=== PATIENT | female | born 1985 | race Caucasian/White ===

== ENCOUNTER 2021-08-07 16:50 | Emergency (ER) | payer MEDICAID, SELFPAY ==
[2021-08-07 18:11] VITALS: BP 112/75; PULSE 51; TEMP 37.1; O2SAT 97
--- NOTE | 2021-08-07 18:27 | ED.GENADUL_ITS ---
Discharge Plan Disposition Patient Disposition: HOME Condition: Improving Discharge Details Clinical Impression: Back pain Primary Care Provider: Unknown,Unknown ED Provider: Hugo Peacock Home Meds and New Rx's Prescriptions: New oxycodone-acetaminophen [Percocet] 5-325 mg tablet 1 tab PO Q8H PRNQty: 8 0RF cyclobenzaprine 7.5 mg tablet 7.5 mg PO TID PRNQty: 10 0RF ibuprofen 800 mg tablet 800 mg PO TID PRNQty: 20 0RF Continued Mirena 1 EACH intrauterine device 1 diaph IU DIRECTED 0RF multivitamin Tablet 1 tab PO DAILY 0RF Discharge Instructions Instructions: Back Pain (ED) Additional Instructions: Percocet, Flexeril, ibuprofen as directed. Both Flexeril and Percocet may cause drowsiness. Percocet may also cause constipation, you may want to take [id number] stool softener while taking this medication. Cool and/or warm compresses every 2 hours for 20 minutes. Gentle stretching as tolerated. Please watch for new or worsening symptoms and return to the ER for any con cerns. Lastly, I have placed you on the care management list to help expedite outpatient primary care follow-up. As we discussed, outpatient physical therapy may be beneficial if symptoms are to persist Medical Decision Making This is a 36-year-old female, denies significant past medical history, denies IV drug use, presenting to the ER for diffuse lower back discomfort worse on the right side that happened suddenly after turning and lifting some bicycles. She denies any numbness, tingling, weakness, radicular pain. Denies fever, bowel or bladder incontinence and/or retention. Took 2 Motrin with little relief of her symptoms. Reports that pain is manageable at rest but with certain types of movements the pain really intensifies. Clinically she appears uncomfortable, positive straight leg raise, and mild right-sided paravertebral spasm. Neurologically intact. Given she has no midline point tenderness, this injury occurred with more of a twisting and lifting mechanism, I do not believe that emergent advanced imaging is required. Patient reports Mirena, no chance of . Will provide IV morphine, Toradol, Norflex and reassess. Upon reevaluation patient reports moderate improvement of her symptoms but with certain movement her pain does intensify. Her straight leg raise in the right side now is approximately 25-30 degrees. She certainly has better range of motion and appears more comfortable. She remains neurologically intact. 5 out of 5 strength bilateral lower extremities. We discussed options. She is comfortable discharge at this time, I will provide a take-home pack of Flexeril, Percocet, and provide her a prescription to fill tomorrow Flexeril, Percocet and Motrin. We discussed conservative measures, gentle stretching, cool and/or warm compresses, and the importance of outpatient follow-up. I will place her on the care management list to help expedite outpatient primary care follow-up. Otherwise strict discharge and return precautions were provided. This documentation was generated using [facility] [employer] [facility] system, please disregard any oddities of phrase or misspellings. Medical Records Medical records reviewed: Yes I reviewed the patient's medical records. HPI General Mode of arrival: ambulatory . Date/Time Provider Initiated Documentation: 08/07/21 17:34 . Limitations to Documentation: no limitations . Information obtained by: patient . History of Present Illness 36 year old F presents to the emergency department with the chief complaint of back pain, described as severe, with intensity rated at 9. Quality is described as aching, and is localized to the back. Patient reports no radiation. Patient started experiencing this hour(s) (2.5) and it has been constant. improves with Immobilization improves symptom(s), Movement worsens symptoms . Patient notes no other symptoms.. Patient did receive the following treatments prior to arrival, NSAID Related Data Home Medications Medication Instructions Recorded Confirmed levonorgestrel 20 mcg/24 hours (7 1 diaph IU DIRECTED 11/03/13 08/07/21 yrs) 52 mg intrauterine device (Mirena) cyclobenzaprine 7.5 mg tablet 7.5 mg PO TID PRN #10 tab 08/07/21 ibuprofen 800 mg tablet 800 mg PO TID PRN #20 tab 08/07/21 multivitamin 1 tab PO DAILY 08/07/21 08/07/21 oxycodone-acetaminophen 5 mg-325 1 tab PO Q8H PRN #8 tab 08/07/21 mg tablet (Percocet) Previous Rx's Medication Instructions Recorded cyclobenzaprine 7.5 mg tablet 7.5 mg PO TID PRN #10 tab 08/07/21 ibuprofen 800 mg tablet 800 mg PO TID PRN #20 tab 08/07/21 oxycodone-acetaminophen 5 mg-325 1 tab PO Q8H PRN #8 tab 08/07/21 mg tablet (Percocet) Allergies Allergy/AdvReac Type Severity Reaction Status Date / Time erythromycin base AdvReac Vomit Unverified 08/07/21 17:06 [Erythromycin Base] penicillin V AdvReac Vomit Unverified 08/07/21 17:06 tape Allergy Intermediate Uncoded 08/07/21 17:06 General Stated Complaint: Nk/Back Pain LUIS ENRIQUE: 4 Review of Systems Constitutional Constitutional: Denies fever(s) and Denies weakness Cardiovascular Cardiovascular: Denies chest pain Respiratory Respiratory: Denies cough Gastrointestinal Gastrointestinal: Denies abdominal pain, Denies nausea and Denies vomiting Genitourinary Genitourinary: Denies abnormal vaginal bleeding, Denies dysuria, Denies urinary incontinence and Denies vaginal discharge Musculoskeletal Musculoskeletal: Reports back pain, Denies numbness and Denies tingling Integumentary/Breasts Skin/Breast: Denies rash Neurologic Neurologic: Denies numbness, Denies tingling and Denies weakness PFSH All Active Problems Back pain (Acute) Medical History Skin tag removed from right chest 04/23/15 Family History Mother Depression Mental disorder Depression Neoplasm VAGINAL Father Substance abuse HISTORY OF SUBSTANCE ABUSE Essential hypertension Hyperlipidemia COPD (chronic obstructive pulmonary disease) Asthma Brother No problems noted. Grandfather Diabetes Grandfather Hyperlipidemia Cirrhosis of liver Grandmother No problems noted. Grandmother No problems noted. Maternal family history Diabetes Paternal family history Essential hypertension Hyperlipidemia Son No problems noted. Son No problems noted. Daughter No problems noted. Social History Smoking/Tobacco Use Status: Current every day Tobacco Type: cigarettes Smoking risk assessment performed?: Yes Alcohol Intake: current Alcohol Intake frequency: a few times a month Drug use: Never Do you feel safe at home: Yes Do you feel safe in your relationship?: Yes Exam Const General: cooperative, healthy appearing and other (Appears uncomfortable) Orientation: alert and awake HENPA Head: normal to inspection, normocephalic and atraumatic Eyes General: appearance normal, both eyes and all related structures Conjunctivae: conjunctivae normal Neck Neck: normal visual inspection, full ROM, no meningeal signs, trachea midline and supple Resp Effort & Inspection: normal respiratory effort and able to speak in complete sentences Auscultation: clear to auscultation bilaterally Cardio Rate: regular rate Rhythm: regular rhythm GI Inspection: normal to inspection Palpation: soft and nontender Back/Spine/Pelvis Back: no CVA tenderness and back tenderness Thoracic/Lumbar Spine: thoracic and lumbar spine normal to inspection, thoraco- lumbar ROM normal (Limited secondary to discomfort), paraspinal tenderness (Lumbar, right-sided) and straight leg raise positive (Right sided, 10 degrees) Pelvis: no pain with anterior-posterior compression and no pain with lateral compression Sacroiliac joints: on the right tender to palpation Skin General skin exam: no rashes or lesions noted Neuro General: patient alert, patient awake, patient oriented x3, moves all extremities and no focal motor deficits Cognition: normal cognition Speech: speech normal Gait: antalgic Motor: muscle tone normal throughout and strength 5/5 throughout Sensory Exam: no sensory deficits noted Extrem General: normal to inspection, full ROM, capillary refill normal, no pedal edema and no calf tenderness Psych Appearance: grossly normal Mental Status: mental status grossly normal Course Vital Signs Vital signs: Vital Signs Temperature 37.1 C 08/07/21 18:11 Pulse 51 L 08/07/21 18:11 Blood Pressure 112/75 08/07/21 18:11 Pulse Oximetry 97 08/07/21 18:11 Temperature 37.1 C 08/07/21 18:11 Temperature Source Oral 08/07/21 18:11 Pulse 51 L 08/07/21 18:11 Respiratory Effort 08/07/21 17:07 Blood Pressure 112/75 08/07/21 18:11 Pulse Oximetry 97 08/07/21 18:11 Oxygen Delivery Method Room Air 08/07/21 18:11 Oxygen Flow Rate 0 08/07/21 18:11 Pain Level 8 08/07/21 18:11 Comment 08/07/21 17:01 PAWSS Have you Been Recently Intoxicated or Drunk Within the Last 30 days?: No Have you Ever Experienced Previous Episodes of Alcohol Withdrawal?: No Have you ever Experienced Withdrawal Seizures?: No Have you ever Experienced Delirium Tremens(DT)s?: No Have you ever undergone Alcohol Rehabilitation Treatment (i.e, inpt ot outpatient treatment programs)?: No Have you ever Experienced Blackouts?: No Have you ever Combined Alcohol with other Downers within the last 90 days?: No Have you ever Combined Alcohol with any other Substance of Abuse during the last 90 days?: No Positive Blood Alcohol level on Presentation? [PCS.BAL]: No Evidence of Increased Autonomic Activity (i.e. HR>120, tremor, sweating, agitation, nausea)?: No Result: 0
[2021-08-07] MEDS: Orphenadrine 60 MG/2 ML VIAL IVP (18:44)
[2021-08-07] MEDS: MORPHine 4 MG/ML SYR IVP (18:44)
[2021-08-07] MEDS: Ketorolac 30 MG/ML VIAL IVP (18:44)
--- NOTE | 2021-08-07 19:46 | NUR.NOTE ---
Referral to Care Management to establish pcp to f/u 5-10 days for back pain.Nursing Note:
[2021-08-07 19:51] VITALS: BP 113/73; PULSE 43; RESP 16; O2SAT 98
[2021-08-07] MEDS: Cyclobenzaprine 10 MG TAB, 3 TABS/BTL PO (19:53)
== END 2021-08-07 20:04 | disposition home or self-care (01) ==
PROVIDERS: Emergency Provider Physician Assistant
DX: M54.50 Low back pain, unspecified (principal); X50.0XXA Overexertion from strenuous movement or load, initial encounter
CPT/HCPCS: 96374; 96375; 99284; J2360; J1885; J2270

== ENCOUNTER 2022-08-16 02:47 | Emergency (ER) | payer MEDICAID, SELFPAY ==
[2022-08-16 02:51] VITALS: BP 133/78; PULSE 53; RESP 17; TEMP 36.8; O2SAT 98
--- NOTE | 2022-08-16 03:11 | ED.GENADUL_ITS ---
Discharge Plan Disposition Patient Disposition: Home Condition: Stable Discharge Details Clinical Impression: Pain, dental ED Provider: Rivera Burciaga Home Meds and New Rx's Prescriptions: New clindamycin HCl 150 mg capsule 450 mg PO TID 7 Days Qty: 63 0RF Continued Mirena 1 EACH intrauterine device 1 diaph IU DIRECTED multivitamin Tablet 1 tab PO DAILY ibuprofen 800 mg tablet 800 mg PO TID PRNQty: 20 0RF No Action oxycodone-acetaminophen [Percocet] 5-325 mg tablet 1 tab PO Q8H PRNQty: 8 0RF cyclobenzaprine 7.5 mg tablet 7.5 mg PO TID PRNQty: 10 0RF Discharge Instructions Instructions: Toothache (ED) Additional Instructions: follow up as scheduled with your dentist if you develop fevers, inability to swallow liquids or feel more ill, return to the emergency department Medical Decision Making 37 yo female who denies chronic medical problems comes in with worsening left molar pain and swelling over the last 2 days. Denies fevers or difficulty swallowing liquids. She states she has a dentist appt 08/25. She arrives stable, has mild swelling of the left mid jaw line along the mandible, no submandibular swelling, no drooling or dyspnea. She has pain with percussion to the left lower posterior molar. She has no visible drainable abscess on exam. No pain over the hyoid, no restricted neck movements, midline uvula and normal posterior pharynx. Symptoms and exam consistent with dental infection, no findings to suggest demetrice's. Will start on clindamycin, advised to keep dentist appt and return precautions given Differential Diagnosis Differential Diagnosis: pulpitis, abscess HPI General Mode of arrival: ambulatory . Date/Time Provider Initiated Documentation: 08/16/22 02:53 . Limitations to Documentation: no limitations . Information obtained by: patient . History of Present Illness 37 year old F p resents to the emergency department with the chief complaint of left lower molar pain, described as moderate, Patient started experiencing this day(s) (2) and it has been constant. No relieving factors improve symptom(s), No exacerbating factors reported . Patient notes no other symptoms.. Related Data Home Medications Medication Instructions Recorded Confirmed levonorgestrel 21 mcg/24 hours (8 1 diaph IU DIRECTED 11/03/13 08/07/21 yrs) 52 mg intrauterine device (Mirena) cyclobenzaprine 7.5 mg tablet 7.5 mg PO TID PRN #10 tabs 08/07/21 ibuprofen 800 mg tablet 800 mg PO TID PRN #20 tabs 08/07/21 multivitamin 1 tab PO DAILY 08/07/21 08/07/21 oxycodone-acetaminophen 5 mg-325 1 tab PO Q8H PRN #8 tabs 08/07/21 mg tablet (Percocet) clindamycin HCl 150 mg capsule 450 mg PO TID 7 days #63 caps 08/16/22 Previous Rx's Medication Instructions Recorded cyclobenzaprine 7.5 mg tablet 7.5 mg PO TID PRN #10 tabs 08/07/21 ibuprofen 800 mg tablet 800 mg PO TID PRN #20 tabs 08/07/21 oxycodone-acetaminophen 5 mg-325 1 tab PO Q8H PRN #8 tabs 08/07/21 mg tablet (Percocet) clindamycin HCl 150 mg capsule 450 mg PO TID 7 days #63 caps 08/16/22 Allergies Allergy/AdvReac Type Severity Reaction Status Date / Time erythromycin base AdvReac Vomit Unverified 08/07/21 17:06 [Erythromycin Base] penicillin V AdvReac Vomit Unverified 08/07/21 17:06 tape Allergy Intermediate Uncoded 08/07/21 17:06 General Stated Complaint: DentalOral LUIS ENRIQUE: 4 Review of Systems All systems reviewed & are unremarkable except as noted in HPI and below Constitutional Constitutional: Denies chills, Denies fever(s) and Denies weakness Cardiovascular Cardiovascular: Denies chest pain and Denies dyspnea Respiratory Respiratory: Denies cough and Denies dyspnea Gastrointestinal Gastrointestinal: Denies abdominal pain, Denies nausea and Denies vomiting Integumentary/Breasts Skin/Breast: Denies rash Neurologic Neurologic: Denies weakness PFSH All Active Problems (Updated 08/16/22 @ 03:12 by Rivera Burciaga MD) Pain, dental (Acute) Medical History Skin tag removed from right chest 04/23/15 Family History Mother Depression Mental disorder Depression Neoplasm VAGINAL Father Substance abuse HISTORY OF SUBSTANCE ABUSE Essential hypertension Hyperlipidemia COPD (chronic obstructive pulmonary disease) Asthma Brother No problems noted. Grandfather Diabetes Grandfather Hyperlipidemia Cirrhosis of liver Grandmother No problems noted. Grandmother No problems noted. Maternal family history Diabetes Paternal family history Essential hypertension Hyperlipidemia Son No problems noted. Son No problems noted. Daughter No problems noted. Social History Smoking/Tobacco Use Status: Current every day Tobacco Type: cigarettes Smoking risk assessment performed?: Yes Alcohol Intake: current Alcohol Intake frequency: a few times a month Drug use: Rarely Substance use type: marijuana Do you feel safe at home: Yes Do you feel safe in your relationship?: Yes Exam Const General: no acute distress Orientation: alert HENMT Head: normal to inspection Ears: external ears normal General nose exam: external nose normal Mouth: moist mucous membranes Eyes General: appearance normal, both eyes and all related structures Neck Neck: normal visual inspection Resp Effort & Inspection: normal respiratory effort and able to speak in complete sentences Cardio Rate: regular rate Skin General skin exam: no rashes or lesions noted Neuro General: patient alert and patient oriented x3 Extrem General: normal to inspection Psych Mental Status: mental status grossly normal Course Vital Signs Vital signs: Vital Signs Temperature 36.8 C 08/16/22 02:51 Pulse 53 L 08/16/22 02:51 Respiratory Rate 17 08/16/22 02:51 Blood Pressure 133/78 08/16/22 02:51 Pulse Oximetry 98 08/16/22 02:51 Temperature 36.8 C 08/16/22 02:51 Temperature Source Temporal Artery Scan 08/16/22 02:51 Pulse 53 L 08/16/22 02:51 Respiratory Rate 17 08/16/22 02:51 Respiratory Effort Normal 08/16/22 02:53 Blood Pressure 133/78 08/16/22 02:51 Blood Pressure Position Sitting 08/16/22 02:51 Pulse Oximetry 98 08/16/22 02:51 Oxygen Delivery Method Room Air 08/16/22 02:51 Oxygen Flow Rate 0 08/16/22 02:51 Pain Level 7 08/16/22 02:51
[2022-08-16] MEDS: Clindamycin 150 MG CAP 450 MG PO (03:34)
== END 2022-08-16 03:19 | disposition home or self-care (01) ==
PROVIDERS: Emergency Provider Emergency Medicine
DX: K08.89 Other specified disorders of teeth and supporting structures (principal)
CPT/HCPCS: 99283

== ENCOUNTER 2023-03-14 03:12 | Outpatient (CLI) | payer MEDICAID, SELFPAY ==
[2023-03-14 11:22] LABS: HCT 32.8 % (36.0-46.0); HGB 10.7 g/dL (11.2-15.7); MCH 31.3 pg (27.0-33.0); MCHC 32.6 % (32.0-36.0); MCV 96 fL (80-95); MPV 10.6 fL (8.0-11.0); Platelet Count 267 10^3/uL (130-400); RBC 3.42 10^6/uL (3.93-5.22); RDW 12.8 % (11.7-14.6); RDW-SD 44.6 fL; WBC 11.06 10^3/uL (4.4-10.8)
[2023-03-14 11:29] LABS: Glucose,1 Hr (Glucola) 106 mg/dL (80-140)
[2023-03-15 10:42] LABS: Varicella IgG Antibody Positive (See Note)
[2023-03-15 11:57] LABS: Hep B Core Antibody Negative (Negative)
== END 2023-03-14 03:13 | disposition home or self-care (01) ==
LOC: LBO 03:12
PROVIDERS: Visit Provider Advanced Practice Midwife
DX: Z34.93 Encounter for supervision of normal pregnancy, unspecified, third trimester (principal)
CPT/HCPCS: 36415; 82950; 85027; 86704; 86787; 86850; 86900; 86901

== ENCOUNTER 2023-03-14 11:00 | Outpatient (REF) | payer MEDICAID, SELFPAY ==
[2023-03-14 12:23] LABS: *AMPHETAMINES SCREEN URINE Negative (Negative); *BARBITURATES SCREEN URINE Negative (Negative); *BENZODIAZEPINES SCREEN URINE Negative (Negative); Cannabinoids THC Positive (Negative); Cocaine Screen,Urine Negative (Negative); METHADONE URINE SCREEN Negative (Negative); OPIATES URINE SCREEN Negative (Negative)
[2023-03-14 12:26] LABS: Tricyclic Antidepressants Negative (Negative)
[2023-03-19 03:12] LABS: Buprenorphine Negative ng/mL (Cutoff: 5.0); Norbuprenorphine Negative ng/mL (Cutoff: 2.5)
== END 2023-03-14 11:01 | disposition home or self-care (01) ==
LOC: LBN 11:00
PROVIDERS: Visit Provider Advanced Practice Midwife
DX: Z34.93 Encounter for supervision of normal pregnancy, unspecified, third trimester (principal)
CPT/HCPCS: 80307; 80348

== ENCOUNTER → 2023-03-16 00:55 | Outpatient (CLI) | payer MEDICAID, SELFPAY ==
--- NOTE | 2023-03-16 06:45 | DI.US_ITS ---
Exam(s) US OB DAVONTE WEIGHT EXAM: US OB DAVONTE WEIGHT CLINICAL HISTORY: ,ELDERLY MULTIGRAVIDA,[id number]. TECHNIQUE: Transabdominal obstetrical ultrasound was performed. COMPARISON: None this just station FINDINGS: There is a single viable intrauterine gestation with cardiac activity identified-137 bpm The fetus is presently in cephalic position . Amniotic fluid: There is a normal amount of amniotic fluid with an DAVONTE of 12.1cm. Placental location: The placenta is fundal grade 1,with no evidence of placenta previa. Dating parameters place this at approximately 32 weeks and 1 day gestational age, implying BRIAN of 05/14/2023. BPD measures 32 weeks and 1 day HC measures 32 weeks and 1 day AC measures 31 weeks and 5 days FL measures 30 weeks and 2 days Estimated weight is 1750 gm-3 pounds 14 ounces Fetus is at the 18th percentile on the Hadlock scale. IMPRESSION:: Viable 3rd trimester gestation, as described above. DATA REPOSITORY:
== END ==
PROVIDERS: Visit Provider Advanced Practice Midwife
DX: O09.523 Supervision of elderly multigravida, third trimester (principal); Z34.93 Encounter for supervision of normal pregnancy, unspecified, third trimester; Z36.2 Encounter for other antenatal screening follow-up
CPT/HCPCS: 76816

== ENCOUNTER 2023-04-13 12:12 | Outpatient (REF) | payer MEDICAID, SELFPAY | END 2023-04-13 12:13 | disposition home or self-care (01) | LOC: LBN 12:12 | PROVIDERS: PCP Advanced Practice Midwife; Visit Provider Advanced Practice Midwife | DX: Z34.93 Encounter for supervision of normal pregnancy, unspecified, third trimester (principal); Z36.85 Encounter for antenatal screening for Streptococcus B; Z3A.36 36 weeks gestation of pregnancy | CPT/HCPCS: 87081 ==

== ENCOUNTER 2023-04-13 13:24 | Outpatient (REF) | payer MEDICAID, SELFPAY ==
[2023-04-13 14:53] LABS: *AMPHETAMINES SCREEN URINE Negative (Negative); *BARBITURATES SCREEN URINE Negative (Negative); *BENZODIAZEPINES SCREEN URINE Negative (Negative); Cannabinoids THC Positive (Negative); Cocaine Screen,Urine Negative (Negative); METHADONE URINE SCREEN Negative (Negative); OPIATES URINE SCREEN Negative (Negative)
[2023-04-13 14:55] LABS: Tricyclic Antidepressants Negative (Negative)
== END 2023-04-13 13:25 | disposition home or self-care (01) ==
LOC: LBN 13:24
PROVIDERS: Advanced Practice Midwife; PCP Advanced Practice Midwife; Visit Provider Advanced Practice Midwife
DX: Z34.93 Encounter for supervision of normal pregnancy, unspecified, third trimester (principal); Z3A.36 36 weeks gestation of pregnancy
CPT/HCPCS: 80307

== ENCOUNTER 2023-05-17 08:38 | Outpatient (CLI) | payer MEDICAID, SELFPAY ==
[2023-05-17 10:08] VITALS: BP 117/57; PULSE 50; TEMP 36.9
[2023-05-17 10:09] VITALS: BP 117/57; PULSE 50; RESP 16; TEMP 36.9
[2023-05-17 10:28] VITALS: BP 117/57; PULSE 50; TEMP 36.9
--- NOTE | 2023-05-17 10:36 | W.OBNST ---
Date of service: 05/17/23 Time of Service: 10:36 NST Evaluation Reason for NST Reasons for Nonstress Test: POSTDATES Gestational Age Gestational Age in Weeks and Days: 40 Weeks and 6Days Test and Monitor Explained Test/Monitor Explained: Test Explained, Monitor Explained and Patient Verbalized Understanding Vital Signs Blood Pressure: 117/57 Pulse: 50 Temperature: 98.5 F NST Information Date on Monitor: 05/17/23 Time on Monitor: 10:04 Date off Monitor: 05/17/23 Time off Monitor: 10:28 Total Time on Monitor: 24 NST Interventions: None Contraction Frequency: irritability NST Evaluation Patient States Movement: Present FHR Baseline: 130 Variability: Moderate 6-25 bpm Accelerations: 15x15 Decelerations: None NST Results: Reactive Note Ultrasound Done: N/A. NST Note Note: NST is reactive and ressuring, however, growth is 6% for growth and plan is for her to go home to gather her things and return this afternoon for IOL. BERTO NST Reviewed and Verified by: Andra Skinner
[2023-05-17 10:37] VITALS: BP 117/57; PULSE 50; TEMP 36.9
== END 2023-05-17 10:36 | disposition home or self-care (01) ==
LOC: BCD 08:45 → OBS 09:16
PROVIDERS: PCP Advanced Practice Midwife; Visit Provider Advanced Practice Midwife
DX: O48.0 Post-term pregnancy (principal); Z3A.40 40 weeks gestation of pregnancy
CPT/HCPCS: 59025

== ENCOUNTER 2023-05-17 14:29 | Inpatient (IN) | payer MEDICAID, SELFPAY ==
[2023-05-17] VITALS (66 sets, daily range): BP systolic 110–131; BP diastolic 56–76; PULSE 0–144; RESP 16–18; TEMP 36.6–37.1
--- NOTE | 2023-05-17 07:00 | DI.US_ITS ---
Exam(s) US OB DAVONTE WEIGHT EXAM: US OB DAVONTE WEIGHT CLINICAL HISTORY: . TECHNIQUE: Transabdominal obstetrical ultrasound performed. COMPARISON: US US OB DAVONTE WEIGHT from 03/16/2023 FINDINGS: Number of fetuses: 1 position: CEPHALIC Placental location: There is a grade 2 fundal placenta. No evidence of previa. BIOMETRIC DATA: BPD: 9.44cm, 38weeks 3days HC: 32.12cm, 36weeks 2days AC: 33.06cm, 37weeks FL: 6.95cm, 35weeks 5days EFW: 3,017.76g, 6lb 11.37oz, 5.9% Composite Age: 36weeks 6days BRIAN: 06/08/2023 Heart Rate: 146bpm Amniotic fluid index: 7.88cm. UMBILICAL DOPPLER: PI PROXIMAL: 0.76 MID: 0.87 DISTAL: 0.69 RI PROXIMAL: 0.53 MID: 0.58 DISTAL: 0.51 S/D PROXIMAL: 2.1 MID: 2.4 DISTAL: 2.0 IMPRESSION: 1. Single live intrauterine gestation as above. 2. Estimated weight is 3018gms. This is the 6th percentile. 3. Amniotic fluid index is 7.9 cm. DATA REPOSITORY:
--- NOTE | 2023-05-17 14:57 | W.PM.OBHPL1 ---
Date of service: 05/17/23 Time of Service: 14:57 Assessment and Plan Assessment and plan (1) Post-dates : Status: Acute Assessment and plan: 1. US done today indicated EFW 6% with normal DAVONTE, due to this and patient preference at 41 weeks gestation, induction of labor was planned 2. Reviewed cervical ripening with Misoprostol PO and how it works as well as expected outcome and potential risks. Denies questions and would like to move forward with this method of induction tonight. 3. CBC and Type and Screen obtained, Dietrich score 5. 4. Will initiate induction of labor. Rationale for induction has been reviewed with OB Physician who agrees to plan. 5. Expect NVD. OB-HPI Labor/Delivery History of Present Illness Reason for Visit: Induction Chief Complaint: Scheduled Induction of Labor Indication for Induction: Post Date. BRIAN Calculator Estimated Delivery Date Method Current WG Current Estimate 05/10/23 LMP (Certain) 41w 0d Other Estimates 05/11/23 Ultrasound #1 40w 6d Comments: Here for induction of labor at 41 weeks gestation per patient preference and due to growth at 6% today by US. She had normal DAVONTE and NST and was able to go home to organize her things and arrange to return this afternoon. Florinda is interested in induction but prefer to avoid most interventions if possible. She prefer to avoid IV access at this time, I did review reasons why IV access is used and that if needed it would need to be placed quickly and she agreed to that if needed. She is interested in misoprostol PO for cervical ripening at this time. Denies LOF or vaginal bleeding. KH History of Present Expected Delivery Route/Plan - CNM FOB- Dion Rachel (3 children from previous relationship) BB yes to circ support team will be THOM, Cindy (friend), and btwn 1-5 of their children Hopes to avoid epidural and use water & nitrous, possible waterbirth GBS negative Specific Issues/Plan 1. Transferred care at 31 weeks from [facility]; wants low intervention, delayed cord cutting, S2S, etc 2. Anemia, discuss- She was taking with iron once per week, iron daily recommended. 2a. At 36 wks Hgb 10.0 Iron daily recommended. 3. 1-hr GTT 03/14- Normal 4. Right ventricle outflow tract poorly visualized. Growth US sched'ed, req heart views if possible (not done) 5. History of pituitary tumor and prolactinemia- resolved per scan in 2012. 6. Severe TMJ right side - Ibuprofen exposure 400 mg every 3 hours in first trimester 7. Tooth abcess-needs a root canal 8. marijuana use - UDS at 32 weeks, POSC discussed. THC+ at 36 wks, POSC complete 9. Advanced maternal age. Growth US 32 weeks 18% DAVONTE 12.1 cephalic Informed Consent Informed Consent: Augmentation of Labor, Induction of Labor and Risk,Benefits,Alternatives Discussed Review of Systems All systems reviewed & are unremarkable except as noted in HPI and below (no questions or concerns) PFSH All Active Problems Post-dates (Acute) Other specified counseling (Acute) Anemia affecting fourth (Acute) Ultrasound scan to recheck heart rate (Acute) Marijuana use (Acute) Elderly multigravida in third trimester (Acute) (Acute) TMJ arthropathy (Acute) Facial pain (Acute) Medical History Asthma Alopecia Anxiety (08/18/15) 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, resolved 2012 Skin tag removed from right chest 04/23/15 Family History Mother Depression Mental disorder Depression Neoplasm VAGINAL Father Substance abuse HISTORY OF SUBSTANCE ABUSE Essential hypertension Hyperlipidemia COPD (chronic obstructive pulmonary disease) Asthma Hypertension Diverticulitis Grandfather Diabetes Grandfather Hyperlipidemia Cirrhosis of liver Maternal family history Diabetes Paternal family history Essential hypertension Hyperlipidemia Social History Smoking/Tobacco Use Status: Former Tobacco Use Smoking risk assessment performed?: Yes Alcohol Intake: former Drug use: Rarely Substance use type: marijuana Household members: spouse, family and children Number of Children: 3 current occupation: Homemaker, online college classes Do you feel safe at home: Yes Do you feel safe in your relationship?: Yes Additional Social history: 3 biological children, with 4th; 2 kids from previous relationship History History 5 Para 3 Hx # Term Pregnancies 3 Multiple births 0 Hx # Pregnancies 0 Ectopic pregnancies 0 AB induced 0 Hx Number of Living Children 3 AB spontaneous 1 Past Pregnancies Del. Date GA/Weeks # Preg Succ Route Wgt Sex Labor Lgth Anesthesia Location Prov Complic 07/19/10 39 No Yes vaginal 7 lb Male 34 [facility] 04/12/12 40 No Yes vaginal 7 lb Female [address] [place] [address] 05/03/13 39 Yes vaginal 6 lb Male 8 [facility] Delivery Date: 04/12/12 Last Updated by: Andra Trevino CNM IOL for post dates at 40+2, ROM and pitocin, paracervical block Meds Allergies and Home Medications Allergies Allergy/AdvReac Type Severity Reaction Status Date / Time amoxicillin Allergy Intermediate Verified 05/17/23 15:05 erythromycin base AdvReac Vomit Unverified 05/17/23 15:05 [Erythromycin Base] penicillin V AdvReac Vomit Unverified 05/17/23 15:05 tape Allergy Intermediate Uncoded 05/17/23 15:05 Home Medications Medication Instructions Recorded Confirmed Type multivitamin 1 tab PO DAILY 08/07/21 05/11/23 History omeprazole magnesium 20 mg 20 mg PO DAILY #90 tabs 03/14/23 05/11/23 Rx tablet,delayed release (Prilosec OTC) acetaminophen 325 mg capsule 325 mg PO ONCE PRN 04/03/23 05/11/23 History (Tylenol) ferrous sulfate 325 mg (65 mg 325 mg PO DAILY #60 tabs 04/13/23 05/11/23 Rx iron) tablet Exam Constitutional Constitutional: no acute distress and average body habitus Detailed Labor and Delivery Exam Dilation: 1.5 Effacement (%): 40 station: -2 Position: AGATHA Cervix position: posterior Consistency: soft Dietrich Score: Cervical Points Exam 0 1 2 3 Dilation Closed 1-2cm 3-4 cm 5-6cm Effacement 0-30% 40-50% 60-70% 80% Consistency Firm Medium Soft Station -3 -2 -1,0 +1,+2 Position Posterior Mid Anterior DIETRICH Score(Cervical Ripeness Score): 5 Amniotic Membrane Status: Intact Monitor Mode: Palpation Contraction Frequency(min): none Fetus A Est. Weight: 6 lb 11 oz Assessment Note: NST done earlier today was reactive and reassuring, monitor being applied at this time as well. KH HEENT Exam HEENT Exam: Normal Neck Exam Neck Exam: Normal (normal visual exam) Chest/Brest/Axilla Exam Chest Exam: Normal Breast Exam Breast Exam: Not Done Respiratory Exam Respiratory Exam: Normal Cardiovascular Exam Cardiovascular Exam: Normal Abdominal Exam Abdominal Exam: Normal Rectal Exam Rectal Exam: Not Done Exam Exam: Normal Extremities Exam Extremities Exam: Normal Back/Spine/Pelvis Exam Back Exam: Normal Pelvis Adequate: Yes Skin Exam Skin Exam: Normal Neurological Exam Neurological Exam: Normal Psychiatric Exam Psychiatric Exam: Normal Results Results Group Beta Strep: Negative Blood Type: A+ Rubella Status: Immune Varicella Immunity: Immune Lab Results: Hep B and C neg, HIV and Syphilis neg, 1 hour 106. Transferred into our care in February of 2023 from [facility] see scanned records. Risk Assessment Risk for Shoulder Dystocia Historical/Initial OB: NEGATIVE FOR: Pelvic Abnormality, Pre- BMI>30, Previous Shoulder Dystocia or Previous Macrosomia 36 Weeks: POSITIVE FOR: Maternal Weight Gain>40lbs; NEGATIVE FOR: Current Gestational DM or EFW>4500gms Delivery Plan @ 40 wks: induction of labor, no increased risk at this time 05/17/23 Risk for Pre-Eclampsia Yes, if one or more: POSTIVE FOR: Hx Pre-E/Gest HTN Yes, if 2 or more: POSITIVE FOR: Age>= 35 yrs Risk for Post- Hemorrhage Initial: NEGATIVE FOR: Multiple Gestation, Previous PPH, Known Clotting Deficiency, Grand Multiparity or Anticoagulation 36 Weeks: NEGATIVE FOR: Anemia, hgb<10, Low platelets(thrombocytopenia), Gestational HTN or Pre-E, Polyhydraminios or EFW>4500gms Counseled re: Active Management: Yes Date/Initials: 05/17/23 Risks Reviewed Risks Reviewed Upon Admission: Yes (low risk on admission, will continue to assess throughout labor)
[2023-05-17 15:04] LABS: HCT 33.3 % (36.0-46.0); HGB 11.4 g/dL (11.2-15.7); MCH 30.9 pg (27.0-33.0); MCHC 34.2 % (32.0-36.0); MCV 90 fL (80-95); Platelet Count 234 10^3/uL (130-400); RBC 3.69 10^6/uL (3.93-5.22); RDW 13.4 % (11.7-14.6); RDW-SD 44.7 fL; WBC 8.22 10^3/uL (4.4-10.8)
[2023-05-17] MEDS: miSOPROStol 25 MCG TAB 50 MCG PO ×2 (15:46→20:02)
[2023-05-18] VITALS (97 sets, daily range): BP systolic 100–198; BP diastolic 51–170; PULSE 48–150; RESP 14–26; TEMP 36.7–37.1; O2SAT 96–100; BMI 29.9
--- NOTE | 2023-05-18 00:51 | W.PM.OBNL1 ---
Date of service: 05/18/23 Time of Service: 00:51 Informed Consent Informed Consent: Augmentation of Labor, Induction of Labor and Risk,Benefits,Alternatives Discussed Pelvic Exam Dilation: 2 Effacement (%): 25 station: -1 Cervix Position: posterior Consistency: soft Vaginal Exam Presentation: Cephalic Contractions Monitor Mode: External Contraction Frequency(min): every 2-3 Contraction Duration(sec): 60 Intensity: Mild Fetus A Monitor: External (US) Heart Rate Baseline: 130 Presentation: Vertex Variability: Moderate (6-25 BPM) Categories: Category I FHR Rhythm: Regular Accelerations: 15 X 15 Decelerations: None Assessment and Plan Assessment and plan (1) Encounter for induction of labor: Status: Acute Assessment and plan: comfort measures. Misoprostol dose held and anticipate . Objective Abnormal lab results 05/17/23 Range/Units 15:01 RBC 3.69 L (3.93-5.22) 10^6/uL Hct 33.3 L (36.0-46.0) % Temp Pulse Resp BP 97.8 F 56 L 18 131/76 05/17/23 18:58 05/17/23 23:35 05/17/23 18:58 05/17/23 23:35 Laboratory Results WBC 8.22 10^3/uL (4.4-10.8) 05/17/23 15:01 RBC 3.69 10^6/uL (3.93-5.22) L 05/17/23 15:01 Hgb 11.4 g/dL (11.2-15.7) 05/17/23 15:01 Hct 33.3 % (36.0-46.0) L 05/17/23 15:01 MCV 90 fL (80-95) 05/17/23 15:01 MCH 30.9 pg (27.0-33.0) 05/17/23 15:01 MCHC 34.2 % (32.0-36.0) 05/17/23 15:01 RDW 13.4 % (11.7-14.6) 05/17/23 15:01 Plt Count 234 10^3/uL (130-400) 05/17/23 15:01 MPV 11.0 fL (8.0-11.0) 05/17/23 15:01 Patient ABO/Rh A Positive 05/17/23 15:01 Antibody Screen NEGATIVE 05/17/23 15:01 Subjective Patient Reports: New Complaints Interval history since last seen: SROM reported for mod amount clear fluid. Mild strength contractions. Florinda used the tub for comfort. Results Hemoglobin/Hematocrit: Hgb 11.4 g/dL (11.2-15.7) 05/17/23 15:01 Hct 33.3 % (36.0-46.0) L 05/17/23 15:01 Abnormal Lab Findings: Abnormal Labs 05/17/23 15:01 RBC 3.69 L Hct 33.3 L
--- NOTE | 2023-05-18 08:07 | W.PM.OBNL1 ---
Date of service: 05/18/23 Time of Service: 08:07 Informed Consent Informed Consent: Augmentation of Labor, Induction of Labor and Risk,Benefits,Alternatives Discussed Pelvic Exam Comments: VE deferred at this time Contractions Monitor Mode: Palpation Contraction Frequency(min): 2-4 Contraction Duration(sec): 60 Intensity: Moderate/Strong Fetus A Assessment Note: FHR being assessed by doppler, intermittently. Has been WNL throughout labor Assessment and Plan Assessment and plan (1) Encounter for induction of labor: Status: Acute Assessment and plan: 1. Continue present management, reassess in 2 hours or prn, will consider pitocin if contraction space out 2. Expect NVD. KH Objective Abnormal lab results 05/17/23 Range/Units 15:01 RBC 3.69 L (3.93-5.22) 10^6/uL Hct 33.3 L (36.0-46.0) % Temp Pulse Resp BP 98.1 F 53 L 18 129/69 05/18/23 05:09 05/18/23 07:09 05/17/23 18:58 05/18/23 07:09 Laboratory Results WBC 8.22 10^3/uL (4.4-10.8) 05/17/23 15:01 RBC 3.69 10^6/uL (3.93-5.22) L 05/17/23 15:01 Hgb 11.4 g/dL (11.2-15.7) 05/17/23 15:01 Hct 33.3 % (36.0-46.0) L 05/17/23 15:01 MCV 90 fL (80-95) 05/17/23 15:01 MCH 30.9 pg (27.0-33.0) 05/17/23 15:01 MCHC 34.2 % (32.0-36.0) 05/17/23 15:01 RDW 13.4 % (11.7-14.6) 05/17/23 15:01 Plt Count 234 10^3/uL (130-400) 05/17/23 15:01 MPV 11.0 fL (8.0-11.0) 05/17/23 15:01 Patient ABO/Rh A Positive 05/17/23 15:01 Antibody Screen NEGATIVE 05/17/23 15:01 Vital Signs Reviewed: Yes Subjective Interval history since last seen: on hands and knees on floor, feels contractions in her back and states they are getting stronger. She reports being a little disappointed that she wasn't 6cm but is doing well overall. KH Results Hemoglobin/Hematocrit: Hgb 11.4 g/dL (11.2-15.7) 05/17/23 15:01 Hct 33.3 % (36.0-46.0) L 05/17/23 15:01 Abnormal Lab Findings: Abnormal Labs 05/17/23 15:01 RBC 3.69 L Hct 33.3 L
--- NOTE | 2023-05-18 10:02 | W.PM.OBNL1 ---
Date of service: 05/18/23 Time of Service: 10:02 Informed Consent Informed Consent: Augmentation of Labor, Induction of Labor and Risk,Benefits,Alternatives Discussed Pelvic Exam Dilation: 4 Effacement (%): 90 station: -1 Position: AGATHA Cervix Position: posterior Consistency: soft Contractions Monitor Mode: Palpation Contraction Frequency(min): 2-4 Contraction Duration(sec): 60 Intensity: Moderate/Strong Fetus A Monitor: Doppler Heart Rate Baseline: 150 Assessment and Plan Assessment and plan (1) Encounter for induction of labor: Status: Acute Assessment and plan: 1. Labor pattern has improved 2. Will utilize tub and nitrous for pain relief 3. Reassess in 2 hours or prn, expect NVD. KH Objective Abnormal lab results 05/17/23 Range/Units 15:01 RBC 3.69 L (3.93-5.22) 10^6/uL Hct 33.3 L (36.0-46.0) % Temp Pulse Resp BP Pulse Ox 98.2 F 53 L 18 129/69 98 05/18/23 09:05 05/18/23 07:09 05/18/23 07:09 05/18/23 07:09 05/18/23 07:09 Laboratory Results WBC 8.22 10^3/uL (4.4-10.8) 05/17/23 15:01 RBC 3.69 10^6/uL (3.93-5.22) L 05/17/23 15:01 Hgb 11.4 g/dL (11.2-15.7) 05/17/23 15:01 Hct 33.3 % (36.0-46.0) L 05/17/23 15:01 MCV 90 fL (80-95) 05/17/23 15:01 MCH 30.9 pg (27.0-33.0) 05/17/23 15:01 MCHC 34.2 % (32.0-36.0) 05/17/23 15:01 RDW 13.4 % (11.7-14.6) 05/17/23 15:01 Plt Count 234 10^3/uL (130-400) 05/17/23 15:01 MPV 11.0 fL (8.0-11.0) 05/17/23 15:01 Patient ABO/Rh A Positive 05/17/23 15:01 Antibody Screen NEGATIVE 05/17/23 15:01 Subjective Interval history since last seen: After a short rest period, Florinda is feeling stronger contractions and requesting to use tub and possibly nitrous for pain relief. Results Hemoglobin/Hematocrit: Hgb 11.4 g/dL (11.2-15.7) 05/17/23 15:01 Hct 33.3 % (36.0-46.0) L 05/17/23 15:01 Abnormal Lab Findings: Abnormal Labs 05/17/23 15:01 RBC 3.69 L Hct 33.3 L
--- NOTE | 2023-05-18 12:41 | PGE_ITS ---
Date of service: 05/18/23 Time of Service: 12:25 Informed Consent Informed Consent: Augmentation of Labor, Induction of Labor and Risk,Benefits,Alternatives Discussed Pelvic Exam Comments: deferred Contractions Monitor Mode: External Contraction Frequency(min): 5-7 Contraction Duration(sec): 50-60 Intensity: Moderate Fetus A Monitor: External (US) Heart Rate Baseline: 130 Variability: Moderate (6-25 BPM) Categories: Category I Accelerations: Present Decelerations: None Assessment and Plan Assessment and plan (1) Encounter for induction of labor: Status: Acute Assessment and plan: 1. WINE STEWARD/STEWARDESS was notified by Insulating Machine Operator of patient request for epidural 2. Will augment with pitocin once epdidural is placed 3. Expect NVD. KH Objective Abnormal lab results 05/17/23 Range/Units 15:01 RBC 3.69 L (3.93-5.22) 10^6/uL Hct 33.3 L (36.0-46.0) % Temp Pulse Resp BP Pulse Ox 98.1 F 55 L 14 105/51 L 100 05/18/23 11:18 05/18/23 11:18 05/18/23 10:05 05/18/23 11:18 05/18/23 10:05 Laboratory Results WBC 8.22 10^3/uL (4.4-10.8) 05/17/23 15:01 RBC 3.69 10^6/uL (3.93-5.22) L 05/17/23 15:01 Hgb 11.4 g/dL (11.2-15.7) 05/17/23 15:01 Hct 33.3 % (36.0-46.0) L 05/17/23 15:01 MCV 90 fL (80-95) 05/17/23 15:01 MCH 30.9 pg (27.0-33.0) 05/17/23 15:01 MCHC 34.2 % (32.0-36.0) 05/17/23 15:01 RDW 13.4 % (11.7-14.6) 05/17/23 15:01 Plt Count 234 10^3/uL (130-400) 05/17/23 15:01 MPV 11.0 fL (8.0-11.0) 05/17/23 15:01 Patient ABO/Rh A Positive 05/17/23 15:01 Antibody Screen NEGATIVE 05/17/23 15:01 Subjective Interval history since last seen: Florinda is requesting epidural as she is aware that contractions have spaced out but is having a hard time dealing with pain. Declines IV Fentanyl at this time. KH Results Hemoglobin/Hematocrit: Hgb 11.4 g/dL (11.2-15.7) 05/17/23 15:01 Hct 33.3 % (36.0-46.0) L 05/17/23 15:01 Abnormal Lab Findings: Abnormal Labs 05/17/23 15:01 RBC 3.69 L Hct 33.3 L
--- NOTE | 2023-05-18 12:50 | W.ANESPRE ---
General Info Date of Service Date Performed: 05/18/23 Height: 5 ft 5 in Weight: 81.647 kg Body Mass Index (BMI): 29.9 Meds Allergies and Home Medications Allergies Allergy/AdvReac Type Severity Reaction Status Date / Time amoxicillin Allergy Intermediate Verified 05/17/23 15:05 erythromycin base AdvReac Vomit Unverified 05/17/23 15:05 [Erythromycin Base] penicillin V AdvReac Vomit Unverified 05/17/23 15:05 tape Allergy Intermediate Uncoded 05/17/23 15:05 Home Medication Medication Instructions Recorded multivitamin 1 tab PO DAILY 08/07/21 omeprazole magnesium 20 mg 20 mg PO DAILY #90 tabs 03/14/23 tablet,delayed release (Prilosec OTC) acetaminophen 325 mg capsule 325 mg PO ONCE PRN 04/03/23 (Tylenol) ferrous sulfate 325 mg (65 mg 325 mg PO DAILY #60 tabs 04/13/23 iron) tablet Current Visit Medications: Current Medications Generic Name Dose Route Start Last Admin Trade Name Freq PRN Reason Stop Dose Admin Fentanyl/Ropivacaine 200 ml 05/18/23 12:30 Fentanyl/Ropivacaine 2 Mcg/Ml And 0.1% 200 Ml Cadd Cassette EP DIRECTED FRANCK Ringer's Solution 1,000 mls @ 200 mls/hr 05/17/23 14:30 IV INFUSION FRANCK Ringer's Solution 500 mls @ 500 mls/hr 05/18/23 12:22 IV 05/18/23 13:21 BOLUS ONE Ringer's Solution 500 mls @ 500 mls/hr 05/18/23 12:22 IV 05/18/23 13:21 BOLUS ONE Ringer's Solution 1,000 mls @ 125 mls/hr 05/18/23 12:30 IV INFUSION [facility] IV Miscellaneous Supplies 1 each 05/17/23 14:28 Iv Access IV DIRECTED PRN maternal indications Misoprostol 50 mcg 05/17/23 15:00 05/18/23 06:18 Misoprostol 25 Mcg Tab PO Not Given Q4H FRANCK Sodium Chloride 0 ml 05/17/23 14:28 Normal Saline Flush 10 Ml Syr IVP PRN PRN Sodium Chloride 0 ml 05/17/23 20:00 05/17/23 23:17 Normal Saline Flush 10 Ml Syr IVP Not Given BID FRANCK Sodium Chloride 0 ml 05/17/23 14:28 Normal Saline 10 Ml Vial IJ DIRECTED PRN Terbutaline Sulfate 0.25 mg 05/17/23 14:28 Terbutaline 1 Mg/Ml Vial SC PRN PRN PFSH Active Problems Active Problems: Problem Status Onset Code Encounter for induction of labor Z34.90 Post-dates O48.0 Other specified counseling Z71.89 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 Ultrasound scan to recheck heart rate Z36.2 Marijuana use F12.90 Elderly multigravida in third trimester O09.523 Z34.90 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 Date GA/Weeks # Preg Succ Route Wgt Sex Labor Lgth Anesthesia Location Prov [facility] 07/19/10 39 No Yes vaginal 3175.[address] [facility] 04/12/12 40 No Yes vaginal 3175.147 g Female [address] [place] [address] 05/03/13 39 Yes vaginal 2721.[address] [facility] Delivery Date: 04/12/12 Last Updated by: Andra Trevino CNM IOL for post dates at 40+2, ROM and pitocin, paracervical block Vital Signs and Lab Results Vital Signs Most Recent Vital Signs in EMR: Most Recent Vital Signs Temp Pulse Resp BP Pulse Ox 36.7 C 55 L 14 105/51 L 100 05/18/23 11:18 05/18/23 11:18 05/18/23 10:05 05/18/23 11:18 05/18/23 10:05 Lab Results 05/17/23 15:01 Blood Type / Crossmatch: Patient ABO/Rh A Positive 05/17/23 Antibody Screen NEGATIVE 05/17/23 Complete Blood Count: White Blood Count 8.22 10^3/uL (4.4-10.8) 05/17/23 15:01 Red Blood Count 3.69 10^6/uL (3.93-5.22) L 05/17/23 15:01 Hemoglobin 11.4 g/dL (11.2-15.7) 05/17/23 15:01 Hematocrit 33.3 % (36.0-46.0) L 05/17/23 15:01 Platelet Count 234 10^3/uL (130-400) 05/17/23 15:01 Complete Metabolic Panel: No Data to Display Liver Function Panel: No Data to Display Coagulation Panel: No Data to Display Cardiac Panel: No Data to Display Arterial Blood Gas: No Data to Display Venous Blood Gas: No Data to Display Pancreas Panel: No Data to Display Thyroid Panel: No Data to Display Infectious Disease: No Data to Display Blood Cultures: No Data to Display Toxicology Panel: No Data to Display Panel: No Data to Display Anesthesia Assessment and Plan Anesthesia History Personal History: No History of Anesthesia Complications Family History: No Family History of Anesthesia Complications Exercise Tolerance Exercise Tolerance: Metabolic Equivalents>4 Pertinent Negatives Pertinent Negatives: No Symptoms of GERD, No Major Cardiovascular Symptoms or Complaints, No Major Pulmonary Symptoms or Complaints and No History of CVA/TIA Cardiac & Pulmonary Exam Cardiac Exam: Normal S1/S2 Heart Sounds Pulmonary Exam: Clear Bilateral Breath Sounds Implantable Cardiac Device Does patient have a Pacemaker or an ICD?: No Airway Exam Known Difficult Airway: No Mallampati Class: 2 Mouth Opening: Normal (> 3cm) Thyromental Distance: Greater than 3 cm Neck Range of Motion: Full ROM Neck Circumference: Normal Teeth Condition: Normal Dentition ASA Classification ASA Score: ASA 2 Emergency Case?: No NPO Status NPO Status: Full Stomach Status Status: Confirmed Anesthesia Plan Resuscitation Status: Full Code Anesthesia Technique: Epidural Anesthesia Airway Planned: Natural Airway Pain Management: Epidural Monitors Used: Standard Monitors
--- NOTE | 2023-05-18 13:23 | W.ANESNEU ---
Epidural/Spinal Catheter Date Performed: 05/18/23 Procedure Start: 13:03 Procedure Stop: 13:15 Requesting Provider: Andra Skinner Procedure Location: Obstetrics Reason Performed: Labor Epidural Standard Monitors Applied: Blood Pressure and SpO2 Patient Position: Sitting Sedation Given (Indicate Dose Given): No Sedation given Patient Mental Status: Awake Sterility: Hand Hygiene, Surgical Cap, Surgical Mask, Sterile Gloves, Sterile Drape/Sheet and Chlorhexidine Procedure Location: L3-L4 Interspace Epidural Needle: Tuohy 17 Guage Needle Length: 3.5 Inch Needle Approach: Midline Epidural Procedure: Skin Prepped, Sterile Drape Placed, 1% Lidocaine to skin and subcutaneous tissue with 25G needle, Tuohy Needle placed, DAMIAN to Saline Used, Epidural Catheter Placed, Negative Heme, Negative CSF Flow and Tuohy Needle Removed Catheter Placed?: Catheter Placed Test Dose (Indicate Dose Given): 5ml 1.5% Lidocaine with 1:200K Epinephrine Given and Negative Test Dose Loss of Resistance Depth (cm): 8 Catheter depth at skin (cm): 11 Dressing: Sorbaview Dressing Placed and Dressing reinforced with Tape Epidural Provider Bolus (Indicate Dose Given): Total bolus dose given in 3-5 ml divided doses and Total Ropivacaine 0.1% with Fentanyl 2mcg/ml Given from pump. (ml) Dose:: 8 ml Additives (Indicate Dose Given ): None Infusion Medication: Medication Infusion Began Medication Infusion: Ropivacaine 0.1% with Fentanyl 2mcg/ml Maintenance Infusion Rate (ml/hour): 10 PCEA Bolus Dose (ml): 5 Block Level: N/A (block still being established) Paresthesia: Left Paresthesia Duration: Transient (Left hip) Ultrasound: Not Used Number of Attempts (See previous attempts in note section): 1 Procedure Tolerated: No Complications and Patient did not tolerate well (Patient did not like the feeling of the epidural being placed. I did ask if she wanted me to continue and she said yes.) Procedure Outcome: Successful (evaluating at this time. ) Performed By: Nick Landers
[2023-05-18] MEDS: Ondansetron 4 MG/2 ML VIAL IVP (14:27)
[2023-05-18] MEDS: Lactated Ringers 1,000 ML 125 ML IV ×2 (14:28→20:56)
[2023-05-18] MEDS: Lactated Ringers 500 ML IV (14:28)
[2023-05-18] MEDS: FentaNYL/ROPIvacaine 2 mcg/ml and 0.1% 200 ML CADD Cassette EP (14:28)
[2023-05-18] MEDS: Normal Saline Flush 10 ML SYR IVP (14:28)
[2023-05-18] MEDS: Oxytocin/Normal Saline 30 UNIT/500 ML BAG 2 UNITS IV (14:47)
--- NOTE | 2023-05-18 15:29 | W.PM.OBNL1 ---
Date of service: 05/18/23 Time of Service: 15:29 Informed Consent Informed Consent: Augmentation of Labor, Induction of Labor and Risk,Benefits,Alternatives Discussed Pelvic Exam Dilation: 7 Effacement (%): 100 station: -1 Contractions Monitor Mode: External Contraction Frequency(min): 3 Contraction Duration(sec): 60 Intensity: Moderate/Strong Fetus A Monitor: External (US) Heart Rate Baseline: 135 Variability: Moderate (6-25 BPM) Categories: Category I Assessment and Plan Assessment and plan (1) Encounter for induction of labor: Status: Acute Assessment and plan: 1. Pitocin augmentation has started, excellent relief from epidural 2. Forewaters ruptured with larger gush of clear fluid 3. Expect NVD. KH Objective Temp Pulse Resp BP Pulse Ox 98.1 F 54 L 14 109/58 L 100 05/18/23 11:18 05/18/23 15:24 05/18/23 10:05 05/18/23 15:24 05/18/23 15:14 Laboratory Results WBC 8.22 10^3/uL (4.4-10.8) 05/17/23 15:01 RBC 3.69 10^6/uL (3.93-5.22) L 05/17/23 15:01 Hgb 11.4 g/dL (11.2-15.7) 05/17/23 15:01 Hct 33.3 % (36.0-46.0) L 05/17/23 15:01 MCV 90 fL (80-95) 05/17/23 15:01 MCH 30.9 pg (27.0-33.0) 05/17/23 15:01 MCHC 34.2 % (32.0-36.0) 05/17/23 15:01 RDW 13.4 % (11.7-14.6) 05/17/23 15:01 Plt Count 234 10^3/uL (130-400) 05/17/23 15:01 MPV 11.0 fL (8.0-11.0) 05/17/23 15:01 Patient ABO/Rh A Positive 05/17/23 15:01 Antibody Screen NEGATIVE 05/17/23 15:01 Subjective Interval history since last seen: very comfortable since epidural. unable to void spontaneously though. agrees to rupturing forewaters and wilks catheter placement. KH Results Hemoglobin/Hematocrit: Hgb 11.4 g/dL (11.2-15.7) 05/17/23 15:01 Hct 33.3 % (36.0-46.0) L 05/17/23 15:01 Abnormal Lab Findings: Abnormal Labs 05/17/23 15:01 RBC 3.69 L Hct 33.3 L
--- NOTE | 2023-05-18 19:28 | W.OBDELIVERY ---
Date of service: 05/18/23 Time of Service: 19:28 OB Labor/ Delivery Information Baby A Delivery Delivery Method: Spontaneaous Presentation: Vertex Vertex Position: Left Occipital Anterior Cord Description-Baby A: 3 Vessels and Clamped/Cut (after 3 minutes of delayed cord clamping) Estimated Blood Loss: total 1000 before going to OR and after singe attempt of manual extraction Delivery Outcome: Liveborn Complications: none Transferred: Other (skin to skin with Mother then Father while Florinda is in OR for manual removal of placenta) Providers Doctor: Jessica Hall Nurse Rigging Foreman: Andra Skinner Frame Bender: Nick Landers Nurse: Emma Hinkle Nurse: Sigifredo Hardin Labor/Delivery Information Group Beta Strep: Negative Rubella Status: Immune Blood Type: A+ Varicella Immunity: Immune Maternal Complications: Other (retained placenta) Shoulder Dystocia: No Note: Florinda presented on 05/17/23 for induction of labor due to EFW 6% at 41 weeks gestation and maternal request. She had 2 doses of Misoprostol 50 mcg PO and progressed to 3cm. She had SROM at 2330 of clear fluid. Her labor progressed but she desired epidural for pain management at 5cm. She had excellent relief. FHR remained CAT I throughout. Her contractions had spaced somewhat and we augmented with pitocin. Florinda progressed to anterior lip at 1740 on 05/18/23 and she was able to push fairly well. Velez was causing her pain and was removed at this time. FHR had been CAT I and remained that way. With position changes and encouragement she delivered a live male at 1803 over intact perineum. Baby was placed skin to skin and delayed cord clamping was utilized through baby's transition. score 7 at 1 minute and 9 at 5 minutes. 3 vessel cord noted. Cord was double clamped and cut by Dion TOMAS. Positive bonding noted. Cord bloods obtained. Pitocin was started via IV dose for active management of second stage when baby delivered. At 15 minutes of life there was a small gush of blood and clot passed and gentle traction on cord with maternal pushing effort was used to see if placenta would deliver, there was no advancement of cord and we cesased traction. fundus was firm and she did not have free flow of blood at this time. 15 minutes later there was a second attempt to deliver placenta again without any success and again blood clots with a total of approximately 750cc. Dr. Hall was paged to attend. Physician arrived at approximately 1900 and assumed care. Decision to go to OR for manual removal was made after single attempt at removal of placenta in birthing room by Dr. Hall with more clots and free flow with total blood loss prior to OR of approximately 1000 cc. Emotional support for family provided. KH Stages of Labor Onset of Labor Date: 05/17/23 Onset of Labor Time: 23:30 Complete Dilatation Date: 05/18/23 ROM Baby A: 05/17/23 ROM Baby A: 23:30 ROM Total Time- Baby A: [id number] Infant Delivery Date-Baby A: 05/18/23 Delivery Time-Baby A: 18:03 Placenta Delivery Date-Baby A: 05/18/23 Total Length of Labor-Baby A: 18 hours and 33 minutes Placenta Status: Delivered Baby A Gender: Male Gestational Age in Weeks/Days: 41 Weeks and 0 Days Score-1 Minute Interval(Baby A) Heart Rate-1 minute: 100 BPM or Greater Respiratory Effort- 1 minute: Spontaneous/Strong Cry Muscle Tone-1 minute: Active Movement Reflex Response-1 minute: Minimal Response Color-1 minute: Pallor or Cyanosis Total Score-1 minute: 7 Score-5 Minute Interval(Baby A) Heart Rate- 5 minute: 100 BPM or Greater Respiratory Effort-5 minute: Spontaneous/Strong Cry Muscle Tone-5 minute: Active Movement Reflex Response-5 minute: Prompt Response Color-5 minute: Bluish Hands or Feet Total Score- 5 minute: 9
[2023-05-18] MEDS: Lactated Ringers 1,000 ML 50 ML IV ×2 (19:35→20:55)
--- NOTE | 2023-05-18 19:40 | PLAC_PTH ---
PATIENT: Florinda Rachel LOC: OBS U#:[id number] AGE/SX: 38/F ROOM: OBS.304 RE05/17/[address]: Andra Skinner CNM : 1985 BED: A DIS: 05/20/2023 SPEC #: [id number] RECD: 05/19/23 12:40 STATUS: NOREEN REQ #: [id number] IHSAN: 05/18/23 19:[address]: Andra Skinner DEPT: Surgical Specimen RECD BY: Caryl Cameron ENTERED: 05/19/23 12:42 SP TYPE: PLAC OTHR DR: Ellen Vaughan CNM Tissues: 1 - PLACENTA (3RD TRIMESTER) Procedures: GROSS AND MICRO LEVEL 5 Comments: [id number]
--- NOTE | 2023-05-18 21:27 | ROE_ITS ---
Date of service: 05/18/23 Time of Service: 21:27 Operative Note Operative Note DATE OF PROCEDURE: 05/18/23 PRE-OP DIAGNOSIS: Status post vaginal delivery, retained placenta, hemorrhage POST-OP DIAGNOSIS: same First-degree periurethral laceration with repair PROCEDURE: Exam under anesthesia, manual extraction of placenta, uterine curettage, repair of periurethral laceration SURGEON: Jessica Hall Refer to Anesthesia Record ESTIMATED BLOOD LOSS: 1,500 PATHOLOGY: other (Placenta for examination) Patient was transported to: PACU Patient's condition: stable Indications: Retained placenta postdelivery, hemorrhage Findings: Placenta adherent to the uterine fundus. hemorrhage with total qu alitative blood loss of 2500 cc. Periurethral laceration, first-degree, repaired Procedure Description: I was called urgently to the patient's suite. Paged at 30 minutes post delivery with retained placenta and passage of clots. Upon my presentation, patient had a retained placenta and approximately 1000 cc of blood loss at that time. In light of difficulty with removal of the placenta, patient discomfort, hemodynamic instability, suspected ongoing blood loss, and adherent placenta, the decision was made for the patient to go to the operating suite. OR crew and anesthesia were called stat. Full informed consent was obtained for exam under anesthesia, manual expression of the uterus, uterine curettage, possible laparotomy, possible hysterectomy. Blood bank was notified for type and cross for 2 units of packed red blood cells to be taken to the operating suite. Patient was then transported to the postanesthesia care unit awaiting arrival of the surgical team. Patient was taken the operating suite with an IV running. She was placed in the dorsal supine position and general anesthesia administered via endotracheal in tubation for the administration of general anesthesia with ease. She was then placed in the modified dorsolithotomy position in [facility]. She had pneumatic compression stockings placed for DVT prophylaxis. She had Betadine preparation of her vagina and perineum. She received 2 g of Ancef for reduction in infectious risk. Anesthesia established a second IV. Manual extraction of the placenta was undertaken. Placenta delivered relatively intact. At this point a speculum was inserted into the vaginal vault and a ring forcep was used to grasp the anterior lip of the cervix. Gentle uterine curettage was performed. A coarse cry of the uterus could be felt in all 4 quadrants. Uterus at this point, was firm, and 2 cm below the umbilicus. Patient did receive 1 dose of TXA 1 dose of Methergine for uterine tonicity, IV Pitocin, and misoprostol, 800 mcg rectally. With the uterus fundus being firm and below the umbilicus, blood loss was minimal at this point. And careful inspection of all areas of the uterus, cervix, and vagina was performed. Again a gentle sharp curettage of the uterus was performed for no remaining tissue. Cervix followed in a circumferential fashion to ensure no lacerations were noted. There was no evidence of vaginal vault laceration, no pelvic hematoma noted. There was a first-degree periurethral laceration which was repaired with 4-0 undyed Monocryl in a simple interrupted fashion. Velez catheter had been previously inserted for continuous bladder drainage and monitoring of urinary output. Upon completion of this the patient was gradually returned from the dorsal supine position to the supine position and remained hemodynamically stable. Over the course of her procedure, she received a total of approximately 2500 cc of crystalloid, 2 units of packed cells and the previously mentioned oxytotic medications. She awoke from anesthesia without difficulty and was taken to the postanesthesia care unit for further monitoring. She will return to the center for close observation. Postdelivery, and surgical findings were discussed with the patient's , and family after her procedure. Findings: Placenta adherent to the uterine fundus, normal-appearing cervix and vaginal vault, first-degree periurethral laceration, repaired. EBL: 2500 cc total, 1000 cc postdelivery prior to presentation to the OR, additional 1500 cc of blood loss in the operating suite. Fluids: Crystalloid per anesthesia, 2 units of packed red blood cells Complications: None apparent Pathology: Placenta for examination.
[2023-05-18] MEDS: miSOPROStol 100 MCG TAB (22:20)
[2023-05-18] MEDS: Acetaminophen 325 MG TAB 650 MG PO (23:20)
[2023-05-18] MEDS: Ibuprofen 600 MG TAB PO (23:20)
[2023-05-19] VITALS (10 sets, daily range): BP systolic 103–129; BP diastolic 56–85; PULSE 66–95; RESP 16–18; TEMP 36.7–37.2; O2SAT 98–99; BMI 29.9
[2023-05-19 00:27] LABS: HCT 30.8 % (36.0-46.0); HGB 10.7 g/dL (11.2-15.7); MCH 31.3 pg (27.0-33.0); MCHC 34.7 % (32.0-36.0); MCV 90 fL (80-95); Platelet Count 192 10^3/uL (130-400); RBC 3.42 10^6/uL (3.93-5.22); RDW 13.3 % (11.7-14.6); RDW-SD 43.8 fL; WBC 23.05 10^3/uL (4.4-10.8)
[2023-05-19 00:40] LABS: ALT 8 U/L (14-59); AST 21 U/L (15-37); Alkaline Phosphatase 141 U/L (46-116); Anion Gap 10.1 mmol/L (3-11); BUN 5 mg/dL (7-18); Bilirubin, Total 0.6 mg/dL (0.2-1.0); CO2 20.9 mmol/L (21.0-32.0); CREATININE 0.6 mg/dL (0.55-1.02); Calcium 7.9 mg/dL (8.5-10.1); Chloride 101 mmol/L (98-107); Estimated GFR 119.23 (mL/min/1.73m2); Glucose 120 mg/dL (74-106); PTT Activated 24.6 sec (23.6-32.8); Potassium 4.1 mmol/L (3.5-5.1); Sodium 132 mmol/L (136-145); Total Protein 5.2 g/dL (6.4-8.2)
[2023-05-19] MEDS: miSOPROStol 200 MCG TAB 600 MCG SL (02:03)
[2023-05-19] MEDS: Acetaminophen 325 MG TAB 650 MG PO ×3 (04:34→20:52)
[2023-05-19 06:53] LABS: HCT 26.2 % (36.0-46.0); HGB 9.1 g/dL (11.2-15.7); MCH 31.6 pg (27.0-33.0); MCHC 34.7 % (32.0-36.0); MCV 91 fL (80-95); MPV 11.8 fL (8.0-11.0); Platelet Count 187 10^3/uL (130-400); RBC 2.88 10^6/uL (3.93-5.22); RDW 13.8 % (11.7-14.6); RDW-SD 45.6 fL; WBC 18.36 10^3/uL (4.4-10.8)
--- NOTE | 2023-05-19 07:12 | W.PM.OBPNV1 ---
Date of service: 05/19/23 Time of Service: 07:12 Assessment and Plan Assessment and plan (1) hemorrhage: Status: Acute Assessment and plan: Patient is postoperative and day #1 status post vaginal delivery followed by retained placenta with hemorrhage of 2500 cc. She was taken the operating suite for manual expression of the placenta, uterine curettage, repair of periurethral laceration. She did receive 2 units of packed red blood cells intraoperatively along with crystalloid and multiple medications including Pitocin, Methergine, TXA, misoprostol for uterine tonicity. Today she is doing well. Her hemoglobin is stable. Vital signs are stable. Urine output is appropriate. Will liberalize her diet, discontinue her Velez catheter. Repeat a CBC in 24 hours. She will be on misoprostol orally 600 mcg for completion of a 24-hour course. Will monitor her vital signs and bleeding carefully. She will liberalize her activity today. Rest, breast-feeding, debriefing of her procedure. All questions were answered (2) Retained placenta with hemorrhage, condition: Status: Acute Subjective Subjective Interval history: Patient seen and examined, labs reviewed. Vital signs reviewed. Hemoglobin this morning is 9.1. Will discontinue her Velez catheter, liberalize her diet. Increase her activity. The events of yesterday's delivery and hemorrhage with retained placenta were again discussed. Patient is grateful, though somewhat traumatized. Will continue to work with her through the events of her delivery baby status: Doing well and Nursing well Exam Physical Exam Vital signs: Temp Pulse Resp BP Pulse Ox 99.0 F 85 17 117/75 98 05/19/23 06:37 05/19/23 06:37 05/19/23 06:37 05/19/23 06:37 05/19/23 06:37 Vital Signs Reviewed: Yes Constitutional Constitutional: no acute distress HEENT Exam HEENT Exam: Normal Respiratory Exam Respiratory Exam: Normal Cardiovascular Exam Cardiovascular Exam: Normal Abdominal Exam Comments: Soft, nontender Fundal Exam Fundus: Below Umbilicus and Firm Extremities Exam Extremity Exam: Normal and Edema (1+ bilateral); negative Calf Tenderness Neurological Exam Neurological Exam: Normal Psychiatric Exam Psychiatric Exam: Normal Results Hemoglobin/Hematocrit: Hgb 9.1 g/dL (11.2-15.7) L 05/19/23 06:25 Hct 26.2 % (36.0-46.0) L 05/19/23 06:25 Abnormal Lab Findings: Abnormal Labs 05/17/23 05/19/23 05/19/23 15:01 00:16 06:25 WBC 23.05 H 18.36 H RBC 3.69 L 3.42 L 2.88 L Hgb 10.7 L 9.1 L Hct 33.3 L 30.8 L 26.2 L MPV 11.8 H Sodium 132 L Carbon Dioxide 20.9 L BUN 5 L Glucose 120 H Calcium 7.9 L ALT 8 L Alkaline Phosphatase 141 H Total Protein 5.2 L Albumin 2.0 L Crossmatch See Detail
[2023-05-19] MEDS: Ibuprofen 600 MG TAB PO ×2 (07:27→20:52)
--- NOTE | 2023-05-19 07:52 | W.ANESPRE ---
General Info Date of Service Date Performed: 05/18/23 Height: 5 ft 5 in Weight: 81.647 kg Body Mass Index (BMI): 29.9 Surgical Procedure: Operation Date: 05/18/23 19:30 Proposed Procedure Side Surgeon p Dilation & Curettage Not Applicable Jessica Hall DO Actual Procedure Side Surgeon p d&c, retained placenta, manual removal Not Applicable Jessica Hall DO Pre-Op Diagnosis Post-Op Diagnosis RETAINED PLACENTA RETAINED PLACENTA Meds Allergies and Home Medications Allergies Allergy/AdvReac Type Severity Reaction Status Date / Time amoxicillin Allergy Intermediate Verified 05/17/23 15:05 erythromycin base AdvReac Vomit Unverified 05/17/23 15:05 [Erythromycin Base] penicillin V AdvReac Vomit Unverified 05/17/23 15:05 tape Allergy Intermediate Uncoded 05/17/23 15:05 Home Medication Medication Instructions Recorded multivitamin 1 tab PO DAILY 08/07/21 omeprazole magnesium 20 mg 20 mg PO DAILY #90 tabs 03/14/23 tablet,delayed release (Prilosec OTC) acetaminophen 325 mg capsule 325 mg PO ONCE PRN 04/03/23 (Tylenol) ferrous sulfate 325 mg (65 mg 325 mg PO DAILY #60 tabs 04/13/23 iron) tablet Current Visit Medications: Current Medications Generic Name Dose Route Start Last Admin Trade Name Freq PRN Reason Stop Dose Admin Acetaminophen 650 mg 05/18/23 21:41 05/19/23 04:34 Acetaminophen 325 Mg Tab PO 650 mg Q4H PRN PRN Administration Dibucaine 0 gm 05/18/23 21:41 Dibucaine 1% 28 Gm Tube TP TID PRN PRN Diphenhydramine HCl 25 mg 05/18/23 13:28 Diphenhydramine 50 Mg/Ml Vial IVP Q6H PRN PRN Persistent pruritis face/trunk Docusate Sodium 100 mg 05/18/23 21:41 Docusate Sodium 100 Mg Cap PO BID PRN PRN Ephedrine Sulfate 5 mg 05/18/23 13:28 Ephedrine 50 Mg/Ml Vial IVP DIRECTED PRN Fentanyl/Ropivacaine 200 ml 05/18/23 12:30 05/18/23 14:28 Fentanyl/Ropivacaine 2 Mcg/Ml And 0.1% 200 Ml Cadd Cassette EP 200 ml DIRECTED FRANCK Administration Ringer's Solution 1,000 mls @ 200 mls/hr 05/17/23 14:30 IV INFUSION FRANCK Ringer's Solution 1,000 mls @ 125 mls/hr 05/18/23 12:30 05/18/23 21:40 IV 125 mls/hr INFUSION [facility] Infusion Naloxone HCl 2 mg/ Sodium 500 mls @ 10.206 mls/hr 05/18/23 13:28 Chloride IV INFUSION PRN pruritis 0.5 MCG/KG/HR Nalbuphine HCl 5 mg/ Sodium 50.5 mls @ 100 mls/hr 05/18/23 13:28 Chloride IVPB Q3H PRN PRN Pruritis Ringer's Solution 1,000 mls @ 50 mls/hr 05/18/23 21:15 05/18/23 21:40 IV 50 mls/hr INFUSION [facility] Infusion Oxytocin/Sodium Chloride 30 unit in 500 mls @ 95 mls/hr 05/18/23 21:45 Pitocin/Normal Saline IV INFUSION [facility] Protocol IV Miscellaneous Supplies 1 each 05/18/23 21:45 Iv Access IV DIRECTED [facility] Ibuprofen 600 mg 05/18/23 21:41 05/19/23 07:27 Ibuprofen 600 Mg Tab PO 600 mg Q6H PRN PRN Administration Lidocaine HCl 0 ml 05/18/23 21:41 Lidocaine 1% Multi-Dose 20 Ml Vial IJ DIRECTED PRN Magnesium Hydroxide 30 ml 05/18/23 21:41 Milk Of Magnesia 30 Ml Cup PO HS PRN PRN Misoprostol 600 mcg 05/19/23 02:00 05/19/23 02:03 Misoprostol 200 Mcg Tab SL 05/19/23 14:01 600 mcg Q6H FRANCK Administration Naloxone HCl 0 mg 05/18/23 13:28 Naloxone 0.4 Mg/Ml Vial IVP DIRECTED PRN Ondansetron HCl 4 mg 05/18/23 13:28 05/18/23 14:27 Ondansetron 4 Mg/2 Ml Vial IVP 4 mg Q6H PRN PRN Administration Nausea Oxytocin 10 units 05/18/23 21:45 Oxytocin 10 Units/Ml Vial IM 05/17/24 21:44 DIRECTED [facility] Rho Immune Globulin 1,500 unit 05/18/23 21:45 Rho(D) Immune Globulin 1500 Unit Vial IM DIRECTED FRANCK Sodium Chloride 0 ml 05/19/23 08:30 Normal Saline Flush 10 Ml Syr IVP BID FRANCK Sodium Chloride 0 ml 05/18/23 21:41 Normal Saline Flush 10 Ml Syr IVP PRN PRN Sodium Chloride 0 ml 05/18/23 21:41 Normal Saline 10 Ml Vial IJ DIRECTED PRN Terbutaline Sulfate 0.25 mg 05/17/23 14:28 Terbutaline 1 Mg/Ml Vial SC PRN PRN Witch Anna/Glycerin 0 each 05/18/23 21:41 Hamamelis Penrose/Glycerin 100 Each Box CO PRN PRN Discomfort PFSH Active Problems Active Problems: Problem Status Onset Code Retained placenta with hemorrhage, condition O72.0 hemorrhage O72.1 Encounter for induction of labor Z34.90 Post-dates O48.0 Other specified counseling Z71.89 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 Ultrasound scan to recheck heart rate Z36.2 Marijuana use F12.90 Elderly multigravida in third trimester O09.523 Z34.90 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 Date GA/Weeks # Preg Succ Route Wgt Sex Labor Lgth Anesthesia Location Prov [facility] 07/19/10 39 No Yes vaginal 3175.147 g Male 34 [facility] 04/12/12 40 No Yes vaginal 3175.147 g Female [address] [place] [address] 05/03/13 39 Yes vaginal 2721.554 g Male 8 [facility] Delivery Date: 04/12/12 Last Updated by: Andra Trevino CNM IOL for post dates at 40+2, ROM and pitocin, paracervical block Vital Signs and Lab Results Vital Signs Most Recent Vital Signs in EMR: Most Recent Vital Signs Temp Pulse Resp BP Pulse Ox 37.2 C 74 16 105/75 99 05/19/23 07:41 05/19/23 07:41 05/19/23 07:41 05/19/23 07:41 05/19/23 07:41 Lab Results 05/19/23 06:25 05/19/23 00:16 Blood Type / Crossmatch: Patient ABO/Rh A Positive 05/17/23 Antibody Screen NEGATIVE 05/17/23 Crossmatch See Detail 05/17/23 Complete Blood Count: White Blood Count 18.36 10^3/uL (4.4-10.8) H 05/19/23 06:25 Red Blood Count 2.88 10^6/uL (3.93-5.22) L 05/19/23 06:25 Hemoglobin 9.1 g/dL (11.2-15.7) L 05/19/23 06:25 Hematocrit 26.2 % (36.0-46.0) L 05/19/23 06:25 Platelet Count 187 10^3/uL (130-400) 05/19/23 06:25 Complete Metabolic Panel: Sodium 132 mmol/L (136-145) L 05/19/23 00:16 Potassium 4.1 mmol/L (3.5-5.1) 05/19/23 00:16 Chloride 101 mmol/L (98-107) 05/19/23 00:16 Carbon Dioxide 20.9 mmol/L (21.0-32.0) L 05/19/23 00:16 BUN 5 mg/dL (7-18) L 05/19/23 00:16 Creatinine 0.6 mg/dL (0.55-1.02) 05/19/23 00:16 Est GFR (CKD-EPI 2020) 119.23 (mL/min/1.73m2) 05/19/23 00:16 Calcium 7.9 mg/dL (8.5-10.1) L 05/19/23 00:16 Albumin 2.0 g/dL (3.4-5.0) L 05/19/23 00:16 Glucose 120 mg/dL (74-106) H 05/19/23 00:16 Liver Function Panel: Alanine Aminotransferase (ALT/SGPT) 8 U/L (14-59) L 05/19/23 00:16 Aspartate Amino Transf (AST/SGOT) 21 U/L (15-37) 05/19/23 00:16 Coagulation Panel: INR International Normalized Ratio 1.0 (0.9-1.1) 05/19/23 00:16 Prothrombin Time 10.0 sec (9.1-11.1) 05/19/23 00:16 Activated Partial Thromboplast Time 24.6 sec (23.6-32.8) 05/19/23 00:16 Cardiac Panel: No Data to Display Arterial Blood Gas: No Data to Display Venous Blood Gas: No Data to Display Pancreas Panel: No Data to Display Thyroid Panel: No Data to Display Infectious Disease: No Data to Display Blood Cultures: No Data to Display Toxicology Panel: No Data to Display Panel: No Data to Display Anesthesia Assessment and Plan Anesthesia History Personal History: No History of Anesthesia Complications Family History: No Family History of Anesthesia Complications Exercise Tolerance Exercise Tolerance: Metabolic Equivalents>4 Pertinent Negatives Pertinent Negatives: No Major Cardiovascular Symptoms or Complaints, No Major Pulmonary Symptoms or Complaints and No History of CVA/TIA Cardiac & Pulmonary Exam Cardiac Exam: Normal S1/S2 Heart Sounds Pulmonary Exam: Clear Bilateral Breath Sounds Implantable Cardiac Device Does patient have a Pacemaker or an ICD?: No Airway Exam Known Difficult Airway: No Mallampati Class: 2 Mouth Opening: Normal (> 3cm) Thyromental Distance: Greater than 3 cm Neck Range of Motion: Full ROM Neck Circumference: Normal Teeth Condition: Normal Dentition ASA Classification ASA Score: ASA 2 Emergency Case?: Yes NPO Status NPO Status: Full Stomach Status Status: Not Relevant due to Medical History Anesthesia Plan Resuscitation Status: Full Code Anesthesia Technique: General Anesthesia Airway Planned: Endotracheal Tube Monitors Used: Standard Monitors Preoperative Comments:: Quick discussion with patient given emergency surgery
--- NOTE | 2023-05-19 07:55 | W.ANESNEU ---
Epidural/Spinal Cath. Removal Date Performed: 05/18/23 Procedure Time: 19:30 Catheter Removal Type: Epidural Catheter Procedure Location: PACU Patient Position: Right Lateral Decubitus Catheter Removal Procedure: Dressing Removed, Catheter Removed without Resistance, Catheter Tip Intact and Dressing Applied Paresthesia: None Procedure Tolerated: No Complications and Patient tolerated well Procedure Outcome: Successful Procedure Comment:: Infusion also stoped at this time. Performed By: Jason Benito
--- NOTE | 2023-05-19 09:38 | ANES.POST_ITS ---
Postoperative Evaluation Date, Time and Location Date Performed: 05/19/23 Time Performed: 09:25 Patient Location: Obstetrics Vital Signs Most Recent Imported Vital Signs: Most Recent Vital Signs Temp Pulse Resp BP Pulse Ox 37.2 C 74 16 105/75 99 05/19/23 07:41 05/19/23 07:41 05/19/23 07:41 05/19/23 07:41 05/19/23 07:41 Pain Score Most Recent Pain Score: Most Recent Pain Score Pain Level 3 05/19/23 07:27 Assessment Mental Status: Awake (Alert & Oriented to Patient Baseline) Airway and Respiratory Function: Patent airway with normal (patient baseline) respiratory exam Cardiovascular Function: Hemodynamically Stable Hydration Status: Adequately Hydrated Nausea & Vomiting: No Nausea or Vomiting Pain: Pt. Denies Any Pain Peripheral Nerve Block: Patient did not receive a nerve block Postoperative Comments:: pt reported two episodes of chest pressure prior to time of this assessment; fl eeting with no other associated symptoms, passed information along to [facility] nurse to relay to OB provider
[2023-05-19] MEDS: Omeprazole 20 MG CAPCR PO (10:32)
[2023-05-20 00:30] VITALS: BP 118/78; PULSE 67; RESP 17; TEMP 36.8; O2SAT 98
[2023-05-20 03:20] VITALS: BP 115/75; PULSE 67; RESP 17; TEMP 36.7; O2SAT 98
[2023-05-20 06:19] LABS: Abs Immature Grans 0.07 10^3/uL (0.0-0.06); Absolute Basophil Count 0.04 10^3/uL (0.0-0.2); Absolute Lymphocyte Count 3.83 10^3/uL (1.2-3.4); Absolute Monocyte Count 0.62 10^3/uL (0.1-0.8); Absolute Neutrophil Count 7.79 10^3/uL (1.2-6.7); Basophils % 0.3; HCT 23.4 % (36.0-46.0); Immature Grans % 0.6; Lymphocytes % 30.7; MCH 31.5 pg (27.0-33.0); MCHC 34.2 % (32.0-36.0); MCV 92 fL (80-95); MPV 11.1 fL (8.0-11.0); Neutrophils % 62.4; Platelet Count 192 10^3/uL (130-400); RBC 2.54 10^6/uL (3.93-5.22); RDW 14.2 % (11.7-14.6); RDW-SD 47.8 fL; WBC 12.48 10^3/uL (4.4-10.8)
[2023-05-20 06:20] LABS: Absolute Eosinophil Count 0.12 10^3/uL (0.0-0.7)
[2023-05-20] MEDS: Ibuprofen 600 MG TAB PO (06:23)
[2023-05-20] MEDS: Acetaminophen 325 MG TAB 650 MG PO ×2 (06:23→12:29)
[2023-05-20 08:12] VITALS: BP 110/68; PULSE 66; RESP 16; TEMP 36.7
--- NOTE | 2023-05-20 09:34 | W.PM.OBNL1 ---
Date of service: 05/20/23 Time of Service: 09:00 Informed Consent Informed Consent: Augmentation of Labor, Induction of Labor and Risk,Benefits,Alternatives Discussed Objective Abnormal lab results 05/20/23 Range/Units 05:58 WBC 12.48 H (4.4-10.8) 10^3/uL RBC 2.54 L (3.93-5.22) 10^6/uL Hgb 8.0 L (11.2-15.7) g/dL Hct 23.4 L (36.0-46.0) % MPV 11.1 H (8.0-11.0) fL Absolute Neutrophils 7.79 H (1.2-6.7) 10^3/uL Absolute Lymphocytes 3.83 H (1.2-3.4) 10^3/uL Temp Pulse Resp BP Pulse Ox 98.0 F 66 16 110/68 98 05/20/23 08:12 05/20/23 08:12 05/20/23 08:12 05/20/23 08:12 05/20/23 03:20 Laboratory Results WBC 12.48 10^3/uL (4.4-10.8) H 05/20/23 05:58 RBC 2.54 10^6/uL (3.93-5.22) L 05/20/23 05:58 Hgb 8.0 g/dL (11.2-15.7) L 05/20/23 05:58 Hct 23.4 % (36.0-46.0) L 05/20/23 05:58 MCV 92 fL (80-95) 05/20/23 05:58 MCH 31.5 pg (27.0-33.0) 05/20/23 05:58 MCHC 34.2 % (32.0-36.0) 05/20/23 05:58 RDW 14.2 % (11.7-14.6) 05/20/23 05:58 Plt Count 192 10^3/uL (130-400) 05/20/23 05:58 MPV 11.1 fL (8.0-11.0) H 05/20/23 05:58 Immature Gran % 0.6 05/20/23 05:58 Neutrophils % 62.4 05/20/23 05:58 Lymphocytes % 30.7 05/20/23 05:58 Monocytes % 5.0 05/20/23 05:58 Eosinophils % 1.0 05/20/23 05:58 Basophils % 0.3 05/20/23 05:58 Nucleated RBC % 0.0 % (0.0-0.3) 05/20/23 05:58 Absolute Neutrophils 7.79 10^3/uL (1.2-6.7) H 05/20/23 05:58 Absolute Lymphocytes 3.83 10^3/uL (1.2-3.4) H 05/20/23 05:58 Absolute Monocytes 0.62 10^3/uL (0.1-0.8) 05/20/23 05:58 Absolute Eosinophils 0.12 10^3/uL (0.0-0.7) 05/20/23 05:58 Absolute Basophils 0.04 10^3/uL (0.0-0.2) 05/20/23 05:58 PT 10.0 sec (9.1-11.1) 05/19/23 00:16 INR 1.0 (0.9-1.1) 05/19/23 00:16 APTT 24.6 sec (23.6-32.8) 05/19/23 00:16 Sodium 132 mmol/L (136-145) L 05/19/23 00:16 Potassium 4.1 mmol/L (3.5-5.1) 05/19/23 00:16 Chloride 101 mmol/L (98-107) 05/19/23 00:16 Carbon Dioxide 20.9 mmol/L (21.0-32.0) L 05/19/23 00:16 Anion Gap 10.1 mmol/L (3-11) 05/19/23 00:16 BUN 5 mg/dL (7-18) L 05/19/23 00:16 Creatinine 0.6 mg/dL (0.55-1.02) 05/19/23 00:16 Est GFR (CKD-EPI 2020) 119.23 (mL/min/1.73m2) 05/19/23 00:16 Glucose 120 mg/dL (74-106) H 05/19/23 00:16 Calcium 7.9 mg/dL (8.5-10.1) L 05/19/23 00:16 Total Bilirubin 0.6 mg/dL (0.2-1.0) 05/19/23 00:16 AST 21 U/L (15-37) 05/19/23 00:16 ALT 8 U/L (14-59) L 05/19/23 00:16 Alkaline Phosphatase 141 U/L (46-116) H 05/19/23 00:16 Total Protein 5.2 g/dL (6.4-8.2) L 05/19/23 00:16 Albumin 2.0 g/dL (3.4-5.0) L 05/19/23 00:16 Patient ABO/Rh A Positive 05/17/23 15:01 Antibody Screen NEGATIVE 05/17/23 15:01 Crossmatch See Detail 05/17/23 15:01 Subjective Interval history since last seen: Pt is feeling well this am. She is looking forward to going home Results Hemoglobin/Hematocrit: Hgb 8.0 g/dL (11.2-15.7) L 05/20/23 05:58 Hct 23.4 % (36.0-46.0) L 05/20/23 05:58 Abnormal Lab Findings: Abnormal Labs 05/17/23 05/19/23 05/19/23 15:01 00:16 06:25 WBC 23.05 H 18.36 H RBC 3.69 L 3.42 L 2.88 L Hgb 10.7 L 9.1 L Hct 33.3 L 30.8 L 26.2 L MPV 11.8 H Absolute Neutrophils Absolute Lymphocytes Sodium 132 L Carbon Dioxide 20.9 L BUN 5 L Glucose 120 H Calcium 7.9 L ALT 8 L Alkaline Phosphatase 141 H Total Protein 5.2 L Albumin 2.0 L Crossmatch See Detail 05/20/23 05:58 WBC 12.48 H RBC 2.54 L Hgb 8.0 L Hct 23.4 L MPV 11.1 H Absolute Neutrophils 7.79 H Absolute Lymphocytes 3.83 H Sodium Carbon Dioxide BUN Glucose Calcium ALT Alkaline Phosphatase Total Protein Albumin Crossmatch
--- NOTE | 2023-05-20 09:39 | W.PM.OBPNV1 ---
Date of service: 05/20/23 Time of Service: 09:00 Assessment and Plan Assessment and plan (1) Retained placenta with hemorrhage, condition: Status: Acute Assessment and plan: Pt is doing well PPD#2 s/p NVD with retained placenta and pph s/p D&C and 2U PRBC. She is feeling well. She is anemic at Hb=8 but denies sxms. She was already taking iron during the and will continue to do so. Her is planning on a vasectomy and she says they will use condoms or the minipill if necessary before that is completed. Subjective Subjective Narrative: Pt is feeling well this am. She is looking forward to going home. She denies dizzyness or lightheadedness and has been up out of bed. She reports moderate lochia. She has some cramping but it has been helped by tylenol. She is breast-feeding without difficulty. Exam Physical Exam Vital signs: Temp Pulse Resp BP Pulse Ox 98.0 F 66 16 110/68 98 05/20/23 08:12 05/20/23 08:12 05/20/23 08:12 05/20/23 08:12 05/20/23 03:20 Vital Signs Reviewed: Yes Constitutional Constitutional: no acute distress and cooperative Detailed HEENT Exam Head: Present normocephalic and atraumatic Respiratory Exam Respiratory Exam: Normal Abdominal Exam Abdomen: Tender (mildly) Fundal Exam Fundus: Below Umbilicus and Firm Extremities Exam Extremity Exam: negative Calf Tenderness or Edema Detailed Neurological Exam Neurological: Present alert, oriented X3 and CN II-XII intact Results Hemoglobin/Hematocrit: Hgb 8.0 g/dL (11.2-15.7) L 05/20/23 05:58 Hct 23.4 % (36.0-46.0) L 05/20/23 05:58 Abnormal Lab Findings: Abnormal Labs 05/17/23 05/19/23 05/19/23 15:01 00:16 06:25 WBC 23.05 H 18.36 H RBC 3.69 L 3.42 L 2.88 L Hgb 10.7 L 9.1 L Hct 33.3 L 30.8 L 26.2 L MPV 11.8 H Absolute Neutrophils Absolute Lymphocytes Sodium 132 L Carbon Dioxide 20.9 L BUN 5 L Glucose 120 H Calcium 7.9 L ALT 8 L Alkaline Phosphatase 141 H Total Protein 5.2 L Albumin 2.0 L Crossmatch See Detail 05/20/23 05:58 WBC 12.48 H RBC 2.54 L Hgb 8.0 L Hct 23.4 L MPV 11.1 H Absolute Neutrophils 7.79 H Absolute Lymphocytes 3.83 H Sodium Carbon Dioxide BUN Glucose Calcium ALT Alkaline Phosphatase Total Protein Albumin Crossmatch
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
== END 2023-05-20 14:11 | disposition home or self-care (01) | DRG 806 ==
LOC: OBS 14:44
PROVIDERS: Nurse Anesthetist, Certified Registered; Obstetrics & Gynecology; Admitting Provider Advanced Practice Midwife; PCP Advanced Practice Midwife; Visit Provider Advanced Practice Midwife
PROC: 10D17Z9 Manual Extraction of Products of Conception, Retained, Via Natural or Artificial Opening (ICD-10-PCS; CPT 59160; principal; 2023-05-18 19:30)
DX: O48.0 Post-term pregnancy (principal); O72.0 Third-stage hemorrhage; Z37.0 Single live birth; Z3A.41 41 weeks gestation of pregnancy; O90.81 Anemia of the puerperium; D64.9 Anemia, unspecified
CPT/HCPCS: 59160; 36415; 76816; 80053; 85027; 86850; 86900; 86901; 86920; 85025; 85610; 85730; 88307; J0690; J1100; J2250; J2405; J2704; J3490; P9016

== ENCOUNTER 2023-07-14 13:46 | Outpatient (REF) | payer MEDICAID, SELFPAY ==
--- NOTE | 2023-07-14 13:30 | PAPFT_PTH ---
PATIENT: Florinda Rachel LOC: [facility] U#:[id number] AGE/SX: 38/F ROOM: RE07/14/[address]: Andra Skinner CNM : 1985 BED: DIS: 07/14/2023 SPEC #: [id number] RECD: 07/14/23 18:00 STATUS: ROMEROHugh REQ #: [id number] IHSAN: 07/14/23 13:[address]: Andra Skinner DEPT: [facility] Cytology RECD BY: Caryl Cameron ENTERED: 07/14/23 18:00 SP TYPE: PAPFT OTHR DR: Unknown,Unknown Tissues: 1 - CX/ENDOCX FOR PAP SMEARS Procedures: PAP THIN PREP/[facility] Screening Comments: [id number]
== END 2023-07-14 13:47 | disposition home or self-care (01) ==
LOC: LBN 13:46
PROVIDERS: Visit Provider Advanced Practice Midwife
DX: Z12.4 Encounter for screening for malignant neoplasm of cervix (principal)
CPT/HCPCS: 88142

== ENCOUNTER 2023-12-21 10:13 | Outpatient (REF) | payer MEDICAID, SELFPAY ==
[2023-12-22 12:56] LABS: Chlamydia Result Negative (Negative); GC Result Negative (Negative)
== END 2023-12-21 10:14 | disposition home or self-care (01) ==
LOC: LBN 10:13
PROVIDERS: Visit Provider Advanced Practice Midwife
DX: Z11.3 Encounter for screening for infections with a predominantly sexual mode of transmission (principal); Z30.430 Encounter for insertion of intrauterine contraceptive device; Z97.5 Presence of (intrauterine) contraceptive device
CPT/HCPCS: 87491; 87591